=== PATIENT | female | born 1995 | race Caucasian/White ===

== ENCOUNTER → 2020-11-14 | Outpatient (CLI) | payer OTHER ==
[~2020-11-14] MED LIST: GADOTERATE 5 MMOL/10ML VIAL. INT ART ONE; IOHEXOL 300 MG/ML 50 ML VIAL. INT ART ONE; LIDOCAINE 1% Multi-Dose 20 ML VIAL. ID ONE; MEDR2.5T28 PO; MONT4TAB5 PO
--- NOTE | 2020-11-14 16:05 | KCIC ---
Study: Fluoroscopically guided arthrogram of the left shoulder joint for MRI Indication: Tendinitis. Pectoralis muscle strain. Contrast: 0.1 cc Clariscan; 3 cc Omnipaque 300 Technique: A timeout was performed prior to beginning the procedure in order to confirm patient identity and lat erality of the injection. The risks, benefits and alternatives of the procedure were discussed. Utilizing sterile technique, fluoroscopic guidance and local anesthesia with 1% lidocaine, the left s houlder joint was accessed utilizing a 22-gauge, 3.5" spinal needle. Confirmation of needle position was obtained with a small amount of radiopaque contrast. Subsequently, approximately 12 cc of a mixtu re containing 0.1 cc Clariscan, 15 cc saline and 5 cc lidocaine was injected. There were no immediate post procedure complications. Fluoroscopy time: 27 seconds Number of images obtained: 1 Impression: Technically successful fluoroscopic guided arthrogram of the left shoulder joint without immediate po stprocedure complication. Electronically signed by: IVONE RAY MD (11/14/2020 4:03 PM) [id number]
--- NOTE | 2020-11-14 17:14 | KCIC ---
STUDY: MRI arthrogram of the left shoulder INDICATION: Tendinitis. Strain of the pectoralis muscle. Lifting injury. Pain. COMPARISON: Left shoulder radiographs 09/26/2020 TECHNIQUE: Multiplanar MR imaging of the left shoulder performed after the intra-articular injection of contrast material. The injection portion of the procedure is detailed in a separate report. FINDINGS: AC joint: The AC joint is unremarkable as is the subacromial subdeltoid bursa. Rotator cuff: No rotator cuff tear or tendinosis. Muscular bulk is normal. Labrum: Intact. Long head biceps tendon: Intact and normally located. Cartilage: No focal chondral defect. Bones: Nonaggressive, lobulated T2 hyperintense focus with a small amount of internal mineralization and a thin sclerotic rim that is centered within the humeral diametaphysis and tracks up towards the physeal scar. The largest portion measures up to 1.3 cm transverse by 1.4 cm AP by 1.8 cm craniocauda l. No fracture or marrow contusion. Glenoid morphology is within normal limits. Miscellaneous: What is seen of the pectoralis musculature is within normal limits. No edema seen with in the partially imaged nonrotator cuff musculature. Several small axillary lymph nodes which are mor phologically benign. Impression: 1. Intact rotator cuff, labrum and long head biceps. What is seen of the pectoralis muscles/tendons i s within normal limits without evidence for recent strain. No acute osseous or soft tissue abnormalit y is identified to help explain the patient's symptoms. 2. Lobulated nonaggressive focus within the proximal humerus centered within the diametaphysis and pr opagating up towards the physeal scar with imaging features most typical of a benign enchondroma when correlating with the recent radiographs. Radiographic follow-up is needed only if there is developme nt of pain at this location. Electronically signed by: IVONE RAY MD (11/14/2020 5:11 PM) [id number]
== END | disposition home or self-care (01) ==
LOC: KCIC 14:02
PROVIDERS: ATTEND Physician Assistant
DX: M75.82 Other shoulder lesions, left shoulder (principal); M77.8 Other enthesopathies, not elsewhere classified; S29.011A Strain of muscle and tendon of front wall of thorax, initial encounter; S46.912A Strain of unspecified muscle, fascia and tendon at shoulder and upper arm level, left arm, initial encounter; Z79.899 Other long term (current) drug therapy; X58.XXXA Exposure to other specified factors, initial encounter; Y93.89 Activity, other specified; Y92.89 Other specified places as the place of occurrence of the external cause; Y99.8 Other external cause status
CPT/HCPCS: 23350; 73222; 77002; A9575; J3490; Q9967

== ENCOUNTER → 2021-05-22 | Outpatient (CLI) | payer OTHER ==
[~2021-05-22] MED LIST changes: -GADOTERATE 5 MMOL/10ML VIAL. INT ART ONE; -IOHEXOL 300 MG/ML 50 ML VIAL. INT ART ONE; -LIDOCAINE 1% Multi-Dose 20 ML VIAL. ID ONE
--- NOTE | 2021-05-22 10:44 | KCIC ---
EXAM: MRI left shoulder DATE: 05/22/2021 8:50 AM COMPARISON: X-ray 09/26/2020, MRI 11/14/2020 INDICATION: Reason: LEFT SHOULDER PAIN / Spl. Instructions: / History: F/U incidental bony abnormali ty on previous imaging. Eval for changes. TECHNIQUE: Multiplanar, multisequence MRI of the left shoulder was performed without contrast. FINDINGS: AC joint is congruent. No os acromiale. Type I acromion. Trace subacromial subdeltoid bursal edema, bursitis. No rotator cuff tear. Rotator cuff muscle signal and bulk is normal. Long head biceps tendon is intact. No labral tear. No acute fracture or osteonecrosis. A 2 x 1.2 cm T2 hyperintense, T1 hypointense lesion is seen withi n the proximal left humeral diametaphysis with small lobular components extending from the physeal sc ar. Accounting for differences in measurement technique, this is stable. No endosteal scalloping. Articular cartilage is preserved. No acute fracture or osteonecrosis. A few small left axillary lymph nodes are normal in size. IMPRESSION: 1. 2 cm lobulated T2 hyperintense lesion in the proximal left humeral diametaphysis. This is most co nsistent with low-grade cartilaginous lesion such as enchondroma. Given stability and lack of aggress shaina characteristics and if further imaging follow-up should be based on clinical criteria such as kathleen n. 2. Trace subacromial-subdeltoid bursal edema, may be seen with bursitis. Electronically signed by: Chito Gomez MD (05/22/2021 10:41 AM) [id number]
== END ==
LOC: KCIC MRI 08:28
PROVIDERS: ATTEND Physician Assistant Medical
DX: M25.812 Other specified joint disorders, left shoulder (principal); M25.512 Pain in left shoulder
CPT/HCPCS: 73221